=== PATIENT | male | born 1970 | race Caucasian/White ===

== ENCOUNTER 2022-03-27 11:47 | Emergency (ER) | payer OTHER ==
[2022-03-27] MEDS ORDERED: DIPHTH,PERTUSS(ACELL),TET 0.5 ML DISP.SYRIN IM ONE ×2 (12:09→12:25)
[2022-03-27 12:38] VITALS: BP 139/92; PULSE 78; RESP 20; TEMP 98.9; BMI 33.0
== END 2022-03-27 12:46 | disposition home or self-care (01) ==
LOC: FER 11:47
PROC: 3E0234Z Introduction of Serum, Toxoid and Vaccine into Muscle, Percutaneous Approach (ICD-10-PCS; principal; 2022-03-27)
DX: S61.011A Laceration without foreign body of right thumb without damage to nail, initial encounter (principal); W26.8XXA Contact with other sharp object(s), not elsewhere classified, initial encounter
CPT/HCPCS: 90715; 99284-25